=== PATIENT | male | born 1995 ===

== ENCOUNTER 2018-02-14 06:33 | Emergency (ER) | payer OTHER ==
[~2018-02-14] VITALS: Ht 175.3 cm; Wt 90.7 kg
[2018-02-14] MEDS ORDERED: MED PARA B/P (06:39)
[2018-02-14] MEDS ORDERED: AMOX-CLAV 875-1 EACH PO (07:49)
== END 2018-02-14 08:02 | disposition home or self-care (01) ==
LOC: ER 06:33
DX: S61.210A Laceration without foreign body of right index finger without damage to nail, initial encounter (principal); W45.8XXA Other foreign body or object entering through skin, initial encounter; Y93.89 Activity, other specified; Y92.89 Other specified places as the place of occurrence of the external cause; Y99.8 Other external cause status